=== PATIENT | female | born 1935 | race Caucasian/White ===

== ENCOUNTER 2019-01-26 14:37 | Emergency (ER) | payer MEDICARE ==
[2019-01-26] MEDS ORDERED: METHYLPREDNISOLONE PF 125MG/VIAL IM ONE (15:05)
[2019-01-26] MEDS ORDERED: IPRATROPIUM/ALBUTEROL (0.5MG/3MG) NEB INH ONE (15:05)
--- NOTE | 2019-01-26 15:09 | Emergency Department Record ---
History of Present Illness - General Chief Complaint: Difficulty Breathing Stated Complaint: TROUBLE BREATHING Time Seen by Provider: 01/26/19 14:51 Source: Patient Mode of Arrival: Ambulatory Limitations: No limitations - History of Present Illness Initial Comments: pts c/o cough, sob. she out of her nebulizer ampules. her cough is productive. she has had no fevers, sweats or chills MD Complaint: Cough, Shortness of breath Onset/Timin -: Days(s) Consistency: Intermittent Improves With: Nothing Worsens With: Nothing, Coughing Known History Of: COPD Context: Recent URI Associated Symptoms: Cough Treatments Prior to Arrival: None - Related Data Home Oxygen Therapy: No Home Medications Medication Instructions Recorded Confirmed Last Taken Aspirin 325 mg PO DAILY 01/26/19 01/26/19 01/26/19 Atorvastatin Calcium 80 mg PO QHS 01/26/19 01/26/19 01/25/19 Buspirone HCl [Buspar] 10 mg PO BID 01/26/19 01/26/19 01/26/19 Clopidogrel Bisulfate [Plavix] 75 mg PO DAILY 01/26/19 01/26/19 01/26/19 Escitalopram Oxalate [Lexapro] 10 mg PO DAILY 01/26/19 01/26/19 01/26/19 Insulin NPH Hum/Reg Insulin Hm 20 units SQ BID 01/26/19 01/26/19 01/26/19 [Novolin 70-30 Flexpen] Isosorbide Mononitrate [Imdur] 20 mg PO BID 01/26/19 01/26/19 01/26/19 Levothyroxine Sodium [Synthroid] 100 mcg PO DAILY 01/26/19 01/26/19 01/26/19 Previous Rx's Medication Instructions Recorded Albuterol Sulfate 0.083% [Neb] 3 ml NEB .EVERY 4-6 HOURS PRN #20 01/26/19 [Albuterol Sulfate] ml Doxycycline Hyclate 100 mg PO BID #14 cap 01/26/19 Prednisone [Prednisone 20Mg] 20 mg PO Q12HR #7 tab 01/26/19 Allergies Allergy/AdvReac Type Severity Reaction Status Date / Time codeine Allergy CHEST PAIN Verified 01/26/19 14:46 Penicillins Allergy RASH Verified 01/26/19 14:46 Travel Screening - Travel/Exposure Within Last 30 Days Have you traveled within the last 30 days?: No - Travel/Exposure Within Last Year Have you traveled outside the [place] in the last year?: No - Additonal Travel Details Have you been exposed to anyone with a communicable illness?: No - Travel Symptoms Symptom Screening: None Review of Systems Reviewed: No additional complaints except as noted below Constitutional: Reports: As per HPI. Denies: Chills, Fever, Malaise, Night sweats, Weakness, Weight change Eyes: Reports: As per HPI. Denies: Eye discharge, Eye pain, Photophobia, Vision change ENT: Reports: As per HPI. Denies: Congestion, Dental pain, Ear pain, Epistaxis , Hearing loss, Throat pain Respiratory: Reports: As per HPI. Denies: Cough, Dyspnea, Hemoptysis, Stridor, Wheezes Cardiovascular: Reports: As per HPI. Denies: Arrhythmia, Chest pain, Dyspnea on exertion, Edema, Murmurs, Orthopnea, Palpitations, Paroxysmal nocturnal dyspnea, Rheumatic Fever, Syncope Endocrine: Reports: As per HPI. Denies: Fatigue, Heat or cold intolerance, Polydipsia, Polyuria Gastrointestinal: Reports: As per HPI. Denies: Abdominal pain, Constipation, Diarrhea, Hematemesis, Hematochezia, Melena, Nausea, Vomiting Genitourinary: Reports: As per HPI. Denies: Abnormal menses, Discharge, Dyspareunia, Dysuria, Frequency, Hematuria, Incontinence, Retention, Urgency Musculoskeletal: Reports: As per HPI. Denies: Arthralgia, Back pain, Gout, Joint swelling, Myalgia, Neck pain Skin: Reports: As per HPI. Denies: Bruising, Change in color, Change in hair/ nails, Lesions, Pruritus, Rash Neurological: Reports: As per HPI. Denies: Abnormal gait, Confusion, Headache, Numbness, Paresthesias, Seizure, Tingling, Tremors, Vertigo, Weakness Psychiatric: Reports: As per HPI. Denies: Anxiety, Auditory hallucinations, Depression, Homicidal thoughts, Suicidal thoughts, Visual hallucinations Hematological/Lymphatic: Reports: As per HPI. Denies: Anemia, Blood Clots, Easy bleeding, Easy bruising, Swollen glands Past Medical History - SOCIAL HISTORY Smoking Status: Never smoker Alcohol Use: None Drug Use: None - RESPIRATORY Hx Respiratory Disorders: Yes Hx COPD: Yes - CARDIOVASCULAR Hx Cardio Disorders: Yes Hx Heart Attack: Yes - NEURO Hx Neuro Disorders: No - GI Hx GI Disorders: No - Hx Genitourinary Disorders: No - ENDOCRINE Hx Endocrine Disorders: Yes Hx Diabetes: Yes Hx Thyroid Disease: Yes - MUSCULOSKELETAL Hx Musculoskeletal Disorders: No - PSYCH Hx Psych Problems: Yes Hx Depression: Yes - HEMATOLOGY/ONCOLOGY Hx Hematology/Oncology Disorders: No Family Medical History Any Significant Family History?: Yes Hx Cancer: Brother/Sister Hx Dementia: Brother/Sister Hx Heart Disease: Father Physical Exam - General General Appearance: Alert, Oriented x3, Cooperative, No acute distress - Head Head exam: Normal inspection - Eye Eye exam: Normal appearance, PERRL, EOMI Pupils: Normal accommodation - ENT ENT exam: Normal exam, Mucous membranes moist, Normal external ear exam, Normal orophraynx Ear exam: Normal external inspection. negative: External canal tenderness Nasal Exam: Normal inspection. negative: Discharge, Sinus tenderness Mouth exam: Normal external inspection, Tongue normal Teeth exam: Normal inspection. negative: Dental caries Throat exam: Normal inspection. negative: Tonsillar erythema, Tonsillar exudate - Neck Neck exam: Normal inspection, Full ROM. negative: Tenderness - Respiratory Respiratory exam: Wheezes. negative: Respiratory distress - Cardiovascular Cardiovascular Exam: Regular rate, Normal rhythm, Normal heart sounds - GI/Abdominal GI/Abdominal exam: Soft, Normal bowel sounds. negative: Tenderness - Rectal Rectal exam: Deferred - exam: Deferred - Extremities Extremities exam: Normal inspection, Full ROM, Normal capillary refill. negative: Tenderness - Back Back exam: Reports: Normal inspection, Full ROM. Denies: Muscle spasm, Rash noted, Tenderness - Neurological Neurological exam: Alert, CN II-XII intact, Normal gait, Oriented X3 - Psychiatric Psychiatric exam: Normal affect, Normal mood - Skin Skin exam: Dry, Intact, Normal color, Warm Course Vital Signs 01/26/19 14:48 Temperature 97.8 F Pulse Rate 87 Respiratory 22 Rate Blood Pressure 132/54 Pulse Ox 97 - Reevaluation(s) Reevaluation #1: 01/26/19 17:07 pt is breathing easier Medical Decision Making - Lab Data Result diagrams: 01/26/19 14:55 01/26/19 14:55 Disposition Disposition: Discharge Clinical Impression: Bronchitis CHF (congestive heart failure) Qualifiers: Heart failure type: unspecified Heart failure chronicity: acute Qualified Code( s): I50.9 - Heart failure, unspecified COPD (chronic obstructive pulmonary disease) Qualifiers: COPD type: COPD with acute exacerbation Qualified Code(s): J44.1 - Chronic obstructive pulmonary disease with (acute) exacerbation Disposition: Home, Self-Care Condition: (1) Good Instructions: Dyspnea (ED), Heart Failure (ED), COPD (Chronic Obstructive Pulmonary Disease) (ED), Acute Bronchitis (ED) Additional Instructions: follow up with family doctor. return sooner if worse. Prescriptions: Prednisone [Prednisone 20Mg] 20 mg PO Q12HR #7 tab Albuterol Sulfate 0.083% [Neb] [Albuterol Sulfate] 3 ml NEB .EVERY 4-6 HOURS PRN #20 ml PRN Reason: Difficulty In Breathing Doxycycline Hyclate 100 mg PO BID #14 cap Forms: Patient Portal Access Quality - Quality Measures Quality Measures: N/A - Blood Pressure Screening Does Patient Have Any of the Following: Active Dx of HTN Blood Pressure Classification: Pre-Hypertensive BP Reading Systolic Measurement: 132 Diastolic Measurement: 54 Screening for High Blood Pressure: Patient Exclusion, Hx of HTN [G9744]
[2019-01-26] MEDS ORDERED: METHYLPREDNISOLONE PF 125MG/VIAL IVP ONE (15:13)
[2019-01-26 15:25] LABS: BASO % 0.1 % (0-6); EOS % 3.4 % (0-6); GRAN % 72.1 % (47-80); HEMATOCRIT 34.4 % (35.0-47.0); HEMOGLOBIN 10.7 gm/dl (11.6-16.0); LYMPH % 14.4 % (16-45); MEAN CELL VOLUME 94.5 fl (81-97); MEAN CORPUSCULAR HEMOGLOBIN 29.3 pg (27-33); MEAN CORPUSCULAR HGB CONC 31.1 g/dl (32-36); MEAN PLATELET VOLUME 10.3 fl (7.4-10.4); PLATELET COUNT 258 K/uL (130-400); RED BLOOD COUNT 3.64 M/uL (3.80-5.40); RED CELL DISTRIBUTION WIDTH 13.8 % (11.5-14.5); WHITE BLOOD COUNT W/O DIFF 7.6 K/uL (4.2-12.2)
[2019-01-26 15:36] LABS: CREATININE 1.4 mg/dL (0.5-0.9)
[2019-01-26] MEDS ORDERED: FUROSEMIDE IV 20MG/2ML VIAL IVP ONE (16:00)
--- NOTE | 2019-01-28 09:31 | RADIOLOGY REPORT ---
EXAM: CHEST, TWO VIEWS HISTORY: DIFFICULTY BREATHING WITH COUGH AND CONGESTION FOR THE PAST THREE DAYS. TECHNIQUE: PA and lateral upright views of the chest were obtained. Comparison: None. FINDINGS: The heart, mediastinum, and pulmonary vasculature are normal. There is mild calcification of the aorta. There are no acute infiltrates or effusions. There is no pneumothorax. The bones appear intact. Mild degenerative changes are present within the thoracic spine. IMPRESSION: NO ACUTE CHEST PATHOLOGY. JOB NUMBER: [id number] [facility]
== END 2019-01-26 17:27 | disposition home or self-care (01) ==
LOC: ER 14:37
DX: J44.1 Chronic obstructive pulmonary disease with (acute) exacerbation (principal); J44.0 Chronic obstructive pulmonary disease with (acute) lower respiratory infection; J20.9 Acute bronchitis, unspecified; I50.9 Heart failure, unspecified; R06.00 Dyspnea, unspecified; I10 Essential (primary) hypertension; I25.2 Old myocardial infarction
CPT/HCPCS: 71046; 80048; 83880; 84484; 85025; 94640; 96374; 96375; 99284; J1940; J2930

== ENCOUNTER 2019-02-02 15:08 | Inpatient (IN) | payer MEDICARE ==
[2019-02-02] MEDS ORDERED: IPRATROPIUM/ALBUTEROL (0.5MG/3MG) NEB INH ONE (15:28)
[2019-02-02 15:48] LABS: BASO % 0.1 % (0-6); EOS % 1.5 % (0-6); GRAN % 74.4 % (47-80); HEMATOCRIT 32.1 % (35.0-47.0); HEMOGLOBIN 10.2 gm/dl (11.6-16.0); LYMPH % 16.6 % (16-45); MEAN CELL VOLUME 92.2 fl (81-97); MEAN CORPUSCULAR HEMOGLOBIN 29.3 pg (27-33); MEAN CORPUSCULAR HGB CONC 31.8 g/dl (32-36); MEAN PLATELET VOLUME 9.7 fl (7.4-10.4); MONO % 7.4 % (0-9); PLATELET COUNT 347 K/uL (130-400); RED BLOOD COUNT 3.48 M/uL (3.80-5.40); RED CELL DISTRIBUTION WIDTH 13.4 % (11.5-14.5); WHITE BLOOD COUNT W/O DIFF 12.3 K/uL (4.2-12.2)
[2019-02-02 15:59] LABS: CREATININE 1.2 mg/dL (0.5-0.9)
[2019-02-02 16:03] LABS: STREP A SCREEN NEGATIVE (NEGATIVE)
[2019-02-02 16:07] LABS: INFLUENZA A NEGATIVE (NEGATIVE); INFLUENZA B NEGATIVE (NEGATIVE)
[2019-02-02] MEDS ORDERED: METHYLPREDNISOLONE PF 125MG/VIAL IVP ONE (16:07)
--- NOTE | 2019-02-02 16:10 | Emergency Department Record ---
History of Present Illness - General Chief Complaint: Difficulty Breathing Stated Complaint: HI,FEVER Time Seen by Provider: 02/02/19 16:00 Source: Patient Mode of Arrival: Ambulatory Limitations: No limitations - History of Present Illness Initial Comments: pt was here a week ago for sob and was given treatments, steroids and started on doxycycline. she has finished the abx and feels worse. she is coughing and wheezinf and frequently using her nebulizer Complaint: Cough, Shortness of breath Onset/Timin -: Days(s) Severity: Moderate Severity scale (1-10): 2 Quality: Aching Consistency: Constant Improves With: Bronchodilators Worsens With: Nothing Treatments Prior to Arrival: Bronchodilator - Related Data Previous Rx's Medication Instructions Recorded Albuterol Sulfate 0.083% [Neb] 3 ml NEB .EVERY 4-6 HOURS PRN #20 01/26/19 [Albuterol Sulfate] ml Doxycycline Hyclate 100 mg PO BID #14 cap 01/26/19 Allergies Allergy/AdvReac Type Severity Reaction Status Date / Time codeine Allergy CHEST PAIN Verified 02/02/19 15:19 Penicillins Allergy RASH Verified 02/02/19 15:19 Travel Screening - Travel/Exposure Within Last 30 Days Have you traveled within the last 30 days?: No - Travel/Exposure Within Last Year Have you traveled outside the [place] in the last year?: No - Additonal Travel Details Have you been exposed to anyone with a communicable illness?: No - Travel Symptoms Symptom Screening: None Review of Systems Reviewed: No additional complaints except as noted below Constitutional: Reports: As per HPI. Denies: Chills, Fever, Malaise, Night sweats, Weakness, Weight change Eyes: Reports: As per HPI. Denies: Eye discharge, Eye pain, Photophobia, Vision change ENT: Reports: As per HPI. Denies: Congestion, Dental pain, Ear pain, Epistaxis , Hearing loss, Throat pain Respiratory: Reports: As per HPI, Cough, Dyspnea, Wheezes. Denies: Hemoptysis, Stridor Cardiovascular: Reports: As per HPI. Denies: Arrhythmia, Chest pain, Dyspnea on exertion, Edema, Murmurs, Orthopnea, Palpitations, Paroxysmal nocturnal dyspnea, Rheumatic Fever, Syncope Endocrine: Reports: As per HPI. Denies: Fatigue, Heat or cold intolerance, Polydipsia, Polyuria Gastrointestinal: Reports: As per HPI. Denies: Abdominal pain, Constipation, Diarrhea, Hematemesis, Hematochezia, Melena, Nausea, Vomiting Genitourinary: Reports: As per HPI. Denies: Abnormal menses, Discharge, Dyspareunia, Dysuria, Frequency, Hematuria, Incontinence, Retention, Urgency Musculoskeletal: Reports: As per HPI. Denies: Arthralgia, Back pain, Gout, Joint swelling, Myalgia, Neck pain Skin: Reports: As per HPI. Denies: Bruising, Change in color, Change in hair/ nails, Lesions, Pruritus, Rash Neurological: Reports: As per HPI. Denies: Abnormal gait, Confusion, Headache, Numbness, Paresthesias, Seizure, Tingling, Tremors, Vertigo, Weakness Psychiatric: Reports: As per HPI. Denies: Anxiety, Auditory hallucinations, Depression, Homicidal thoughts, Suicidal thoughts, Visual hallucinations Hematological/Lymphatic: Reports: As per HPI. Denies: Anemia, Blood Clots, Easy bleeding, Easy bruising, Swollen glands Past Medical History - SOCIAL HISTORY Smoking Status: Never smoker Alcohol Use: None Drug Use: None - RESPIRATORY Hx Respiratory Disorders: Yes Hx Bronchitis: Yes Hx COPD: Yes Hx Dyspnea: Yes Hx Pneumonia: Yes - CARDIOVASCULAR Hx Cardio Disorders: Yes Hx Cardiac Cath: Yes (4 or 5 stents) Hx Heart Attack: Yes - NEURO Hx Neuro Disorders: No - GI Hx GI Disorders: No - Hx Genitourinary Disorders: No - ENDOCRINE Hx Endocrine Disorders: Yes Hx Diabetes: Yes Hx Thyroid Disease: Yes - MUSCULOSKELETAL Hx Musculoskeletal Disorders: No - PSYCH Hx Psych Problems: Yes Hx Depression: Yes - HEMATOLOGY/ONCOLOGY Hx Hematology/Oncology Disorders: No Family Medical History Any Significant Family History?: Yes Hx Cancer: Brother/Sister Hx Dementia: Brother/Sister Hx Heart Disease: Father Physical Exam - General General Appearance: Alert, Oriented x3, Cooperative, Mild distress - Head Head exam: Normal inspection - Eye Eye exam: Normal appearance, PERRL, EOMI Pupils: Normal accommodation - ENT ENT exam: Normal exam, Mucous membranes moist, Normal external ear exam, Normal orophraynx Ear exam: Normal external inspection. negative: External canal tenderness Nasal Exam: Normal inspection. negative: Discharge, Sinus tenderness Mouth exam: Normal external inspection, Tongue normal Teeth exam: Normal inspection. negative: Dental caries Throat exam: Normal inspection. negative: Tonsillar erythema, Tonsillar exudate - Neck Neck exam: Normal inspection, Full ROM. negative: Tenderness - Respiratory Respiratory exam: Accessory muscle use, Rales, Respiratory distress, Wheezes - Cardiovascular Cardiovascular Exam: Regular rate, Normal rhythm, Normal heart sounds - GI/Abdominal GI/Abdominal exam: Soft, Normal bowel sounds. negative: Tenderness - Rectal Rectal exam: Deferred - exam: Deferred - Extremities Extremities exam: Normal inspection, Full ROM, Normal capillary refill. negative: Tenderness - Back Back exam: Reports: Normal inspection, Full ROM. Denies: Muscle spasm, Rash noted, Tenderness - Neurological Neurological exam: Alert, CN II-XII intact, Normal gait, Oriented X3 - Psychiatric Psychiatric exam: Normal affect, Normal mood - Skin Skin exam: Dry, Intact, Normal color, Warm Course Vital Signs 02/02/19 02/02/19 15:11 15:33 Temperature 97.9 F Pulse Rate 78 81 Respiratory 20 20 Rate Blood Pressure 127/58 Pulse Ox 95 98 - Reevaluation(s) Reevaluation #1: 02/02/19 17:48 pt has failed outpt treatment Medical Decision Making - Lab Data Result diagrams: 02/02/19 15:30 02/02/19 15:30 Lab Results 02/02/19 02/02/19 02/02/19 Range/Units 15:30 15:30 15:30 WBC 12.3 H (4.2-12.2) K/uL RBC 3.48 L (3.80-5.40) M/uL Hgb 10.2 L (11.6-16.0) gm/dl Hct 32.1 L (35.0-47.0) % MCV 92.2 (81-97) fl MCH 29.3 (27-33) pg MCHC 31.8 L (32-36) g/dl RDW 13.4 (11.5-14.5) % Plt Count 347 (130-400) K/uL MPV 9.7 (7.4-10.4) fl Gran % 74.4 (47-80) % Lymphocytes % 16.6 (16-45) % Monocytes % 7.4 (0-9) % Eosinophils % 1.5 (0-6) % Basophils % 0.1 (0-6) % Sodium 142 (136-145) mmol/L Potassium 3.9 (3.4-4.5) mmol/L Chloride 105 (98-107) mmol/L Carbon Dioxide 24.0 (22-29) mmol/L Anion Gap 13.0 (7-16) BUN 21 (8-23) mg/dL Creatinine 1.2 H (0.5-0.9) mg/dL Estimated GFR 46 mL/min Random Glucose 105 (74-109) mg/dL Calcium 8.6 L (8.8-10.2) mg/dL Influenza Type A Ag Negative (NEGATIVE) Influenza Type B Ag Negative (NEGATIVE) Group A Strep Screen Negative (NEGATIVE) Disposition Disposition: Admit Clinical Impression: Acute exacerbation of COPD with asthma Pneumonia Qualifiers: Pneumonia type: due to unspecified organism Laterality: bilateral Lung location : lower lobe of lung Qualified Code(s): J18.1 - Lobar pneumonia, unspecified organism Disposition: Still a Patient at [facility] Decision to Admit: Admit from ER Decision to Admit Date: 02/02/19 Decision to Admit Time: 18:07 Condition: (1) Good Forms: Patient Portal Access Quality - Quality Measures Quality Measures: N/A - Blood Pressure Screening Does Patient Have Any of the Following: No Blood Pressure Classification: Pre-Hypertensive BP Reading Systolic Measurement: 127 Diastolic Measurement: 58 Screening for High Blood Pressure: < Pre-Hypertensive BP, F/U Documented > [ G8950] Pre-Hypertensive Follow-up Interventions: Follow-up with rescreen every year.
[2019-02-02] MEDS ORDERED: LEVOFLOXACIN/D5W 750 MG/150 ML BAG IVPB ONE (17:46)
[2019-02-02] MEDS ORDERED: ACETAMINOPHEN 500 MG TABLET PO PRN (18:44)
[2019-02-02] MEDS ORDERED: 0.9 % SODIUM CHLORIDE 100ML BAG IV SCH (19:00)
[2019-02-02] MEDS: IPRATROPIUM/ALBUTEROL (0.5MG/3MG) NEB INH PRN (20:17)
[2019-02-02] MEDS: LEVOFLOXACIN/D5W 750 MG/150 ML BAG IVPB SCH (21:39)
[2019-02-02] MEDS ORDERED: 0.9 % SODIUM CHLORIDE 100ML BAG IV PRN (21:44)
[2019-02-02] MEDS: BUSPIRONE 5 MG TABLET PO SCH ×2 (22:02→22:13)
[2019-02-02] MEDS: 0.9 % SODIUM CHLORIDE 1000ML 1,000 ML IV SCH (22:03)
[2019-02-02] MEDS: ISOSORBIDE MONONITRATE 20 MG TABLET PO SCH (22:03)
[2019-02-02] MEDS: HUMULIN 70/30 KWIKPEN 100 UNIT/ML SQ SCH (22:04)
[2019-02-02] MEDS: ALBUTEROL SULFATE (0.083%) 2.5 MG/3 ML NEB INH PRN (22:08)
[2019-02-03] MEDS: DIPHENHYDRAMINE HCL 25 MG CAPSULE PO PRN (00:36)
[2019-02-03] MEDS: IPRATROPIUM/ALBUTEROL (0.5MG/3MG) NEB INH PRN (05:48)
--- NOTE | 2019-02-03 06:42 | History & Physical ---
History of Present Illness - Date of Service Date of Service for History & Physical: 02/03/19 - History of Present Illness Admitting Diagnosis: acute exacerbation of copd w asthma, pneumonia, outpt failure History of Present Illness: Mrs. Chin is a 84 y/o female with history of COPD, DM II and CAD s/p stents, complaint of shortness of breath and weakness over the past 1 week. The patient says that she was seen in the ED last week and started on antibiotics for pneumonia and treated for COPD exacerbation which did resolve her symptoms. She says she felt a lot better but then about 1 day ago her symptoms returned. She says that she was not taking her medications as prescribed because she just didn 't feel like it. She says that her appetite hasn't been the best and she feels much weaker. The patient is independent of her ADLs and does not use any oxygen at home. Shes denies, fever, chest pain, headaches, N/V. The patient says that she recently moved from [place] and does not have [employer] here. She cannot recall when her last cardiac echo was and she denies any recent changes to medications. ED course: CXR: No infiltrates/opacities. Labs: WBCs 12K, electrolytes WNL Vitals: BP 127/58,HR78,T97.9, RR20, 95% RA Current Vitals: BP 125/45, HR 79, T 97.7, RR 24, Sats 97% RA PCP: Dr. Kamaljit Garrido Travel Screening - Travel/Exposure Within Last 30 Days Have you traveled within the last 30 days?: No - Travel/Exposure Within Last Year Have you traveled outside the [place] in the last year?: No - Additonal Travel Details Have you been exposed to anyone with a communicable illness?: No - Travel Symptoms Symptom Screening: None Review of Systems Constitutional: Reports: As per HPI. Denies: Chills, Fever, Malaise, Night sweats, Weakness, Weight change Eyes: Reports: As per HPI. Denies: Eye discharge, Eye pain, Photophobia, Vision change ENT: Reports: As per HPI. Denies: Congestion, Dental pain, Ear pain, Epistaxis , Hearing loss, Throat pain Respiratory: Reports: As per HPI, Cough, Dyspnea, Wheezes. Denies: Hemoptysis, Stridor Cardiovascular: Reports: As per HPI. Denies: Arrhythmia, Chest pain, Dyspnea on exertion, Edema, Murmurs, Orthopnea, Palpitations, Paroxysmal nocturnal dyspnea, Rheumatic Fever, Syncope Endocrine: Reports: As per HPI. Denies: Fatigue, Heat or cold intolerance, Polydipsia, Polyuria Gastrointestinal: Reports: As per HPI. Denies: Abdominal pain, Constipation, Diarrhea, Hematemesis, Hematochezia, Melena, Nausea, Vomiting Genitourinary: Reports: As per HPI. Denies: Abnormal menses, Discharge, Dyspareunia, Dysuria, Frequency, Hematuria, Incontinence, Retention, Urgency Musculoskeletal: Reports: As per HPI. Denies: Arthralgia, Back pain, Gout, Joint swelling, Myalgia, Neck pain Skin: Reports: As per HPI. Denies: Bruising, Change in color, Change in hair/ nails, Lesions, Pruritus, Rash Neurological: Reports: As per HPI. Denies: Abnormal gait, Confusion, Headache, Numbness, Paresthesias, Seizure, Tingling, Tremors, Vertigo, Weakness Psychiatric: Reports: As per HPI. Denies: Anxiety, Auditory hallucinations, Depression, Homicidal thoughts, Suicidal thoughts, Visual hallucinations Hematological/Lymphatic: Reports: As per HPI. Denies: Anemia, Blood Clots, Easy bleeding, Easy bruising, Swollen glands Past Medical History - SOCIAL HISTORY Smoking Status: Never smoker Alcohol Use: None Drug Use: None - RESPIRATORY Hx Respiratory Disorders: Yes Hx Bronchitis: Yes Hx COPD: Yes Hx Dyspnea: Yes Hx Pneumonia: Yes - CARDIOVASCULAR Hx Cardio Disorders: Yes Hx Cardiac Cath: Yes (4 or 5 stents) Hx Edema: Yes Hx Heart Attack: Yes Hx Hypertension: Yes - NEURO Hx Neuro Disorders: No Comment:: surgury for impinged facial nerve - GI Hx GI Disorders: Yes Hx Reflux: Yes Hx Hepatitis/Jaundice: Yes (childhood jaundice) Hx of Polyps: Yes - Hx Genitourinary Disorders: No Hx Bladder Problem: Yes Hx UTI: Yes - ENDOCRINE Hx Endocrine Disorders: Yes Hx Diabetes: Yes Hx Thyroid Disease: Yes - MUSCULOSKELETAL Hx Musculoskeletal Disorders: No Hx Arthritis: Yes Hx Back Injury: Yes - PSYCH Hx Psych Problems: Yes Hx Anxiety: Yes Hx Depression: Yes - HEMATOLOGY/ONCOLOGY Hx Hematology/Oncology Disorders: No Family Medical History Any Significant Family History?: Yes Hx Cancer: Brother/Sister, Grandparents Hx Dementia: Brother/Sister Hx Diabetes: Brother/Sister Hx Heart Disease: Father, Mother, Brother/Sister Hx HTN: Father, Mother, Brother/Sister H&P Meds/Allergies - Allergies Allergies: Allergies Allergy/AdvReac Type Severity Reaction Status Date / Time codeine Allergy CHEST PAIN Verified 02/02/19 15:19 Penicillins Allergy RASH Verified 02/02/19 15:19 - Home Medications Previous Rx's Medication Instructions Recorded Albuterol Sulfate 0.083% [Neb] 3 ml NEB .EVERY 4-6 HOURS PRN #20 01/26/19 [Albuterol Sulfate] ml Doxycycline Hyclate 100 mg PO BID #14 cap 01/26/19 - Active Medications Active Medications: Current Medications Acetaminophen (Tylenol 500mg Tab) 1,000 mg PO Q6H PRN PRN Reason: PAIN - MILD(1-4)/FEVER Albuterol Sulfate (Albuterol Sulfate) 2.5 mg INH RESP.Q4H PRN PRN Reason: DIFFICULTY IN BREATHING Last Admin: 02/02/19 22:08 Dose: 2.5 mg Albuterol/Ipratropium (Duoneb) 3 ml INH RESP.Q6H PRN PRN Reason: WHEEZING Last Admin: 02/03/19 05:48 Dose: 3 ml Aspirin (Aspirin, Regular) 325 mg PO DAILY COUNTS [facility]CLUDE 234 BEDS AT THE [facility] Atorvastatin Calcium (Lipitor) 80 mg PO QHS COUNTS INCLUDE 234 BEDS AT THE [facility] Buspirone HCl (Buspar) 10 mg PO BID COUNTS INCLUDE 234 BEDS AT THE [facility] Last Admin: 02/02/19 22:13 Dose: 10 mg Clopidogrel Bisulfate (Plavix) 75 mg PO DAILY COUNTS INCLUDE 234 BEDS AT THE [facility] Diphenhydramine HCl (Benadryl Capsule) 25 mg PO QHS PRN PRN Reason: INSOMNIA Last Admin: 02/03/19 00:36 Dose: 25 mg Escitalopram Oxalate (Lexapro) 10 mg PO DAILY COUNTS [facility]CLUDE 234 BEDS AT THE [facility] Levofloxacin/Dextrose (Levaquin 750mg Ivpb) 750 mg in 150 mls @ 125 mls/hr IVPB Q48H COUNTS INCLUDE 234 BEDS AT THE [facility] Stop: 02/07/19 18:45 Last Admin: 02/02/19 21:39 Dose: Not Given Sodium Chloride () 1,000 mls @ 100 mls/hr IV .Q10H COUNTS INCLUDE 234 BEDS AT THE [facility] Last Infusion: 02/02/19 22:38 Dose: 0 mls/hr Insulin Isophane/Insulin Regular (Humulin 70/30 Kwikpen) 20 unit SQ BID COUNTS INCLUDE 234 BEDS AT THE [facility] Last Admin: 02/02/19 22:04 Dose: 20 unit Isosorbide Mononitrate (Imdur) 20 mg PO BID COUNTS INCLUDE 234 BEDS AT THE [facility] Last Admin: 02/02/19 22:03 Dose: 20 mg Levothyroxine Sodium (Synthroid) 100 mcg PO DAILY COUNTS INCLUDE 234 BEDS AT THE [facility] Methylprednisolone Sodium Succinate (Solu-Medrol) 125 mg IVP DAILY COUNTS INCLUDE 234 BEDS AT THE [facility] Pneumococcal Polyvalent Vaccine (Pneumovax) 25 mcg IM .ONCE ONE Stop: 02/03/19 10:01 Physical Exam - Vital Signs Vital Signs: Vital Signs - Last 24 Hrs Temp Pulse Pulse Resp BP BP Pulse Ox 02/03/19 06:00 97.7 F 79 24 125/45 97 02/03/19 05:49 84 22 97 02/02/19 22:10 79 20 94 L 02/02/19 21:00 20 02/02/19 20:38 97.7 F 84 22 127/45 97 02/02/19 20:20 88 22 95 02/02/19 18:45 98.1 F 70 22 141/45 100 02/02/19 17:03 76 20 126/55 97 02/02/19 15:33 81 20 98 02/02/19 15:11 97.9 F 78 20 127/58 95 - General General Appearance: Alert, Oriented x3, Cooperative, Mild distress Limitations: No limitations - Head Head exam: Normal inspection - Eye Eye exam: Normal appearance, PERRL, EOMI Pupils: Normal accommodation - ENT ENT exam: Normal exam, Mucous membranes moist, Normal external ear exam, Normal orophraynx Ear exam: Normal external inspection. negative: External canal tenderness Nasal Exam: Normal inspection. negative: Discharge, Sinus tenderness Mouth exam: Normal external inspection, Tongue normal Teeth exam: Normal inspection. negative: Dental caries Throat exam: Normal inspection. negative: Tonsillar erythema, Tonsillar exudate - Neck Neck exam: Normal inspection, Full ROM. negative: Tenderness - Respiratory Respiratory exam: Rales, Wheezes, Other (crackles at lung bases) - Cardiovascular Cardiovascular Exam: Regular rate, Normal rhythm, Normal heart sounds Peripheral Pulses: 3+: Radial (R), Radial (L), Dorsalis Pedis (R), Dorsalis Pedis (L) - GI/Abdominal GI/Abdominal exam: Soft, Normal bowel sounds. negative: Tenderness - Rectal Rectal exam: Deferred - exam: Deferred - Extremities Extremities exam: Normal inspection, Full ROM, Normal capillary refill. negative: Tenderness - Back Back exam: Reports: Normal inspection, Full ROM. Denies: Muscle spasm, Rash noted, Tenderness - Neurological Neurological exam: Alert, CN II-XII intact, Normal gait, Oriented X3 - Psychiatric Psychiatric exam: Normal affect, Normal mood - Skin Skin exam: Dry, Intact, Normal color, Warm Results - Labs Result Diagrams: 02/02/19 15:30 02/02/19 15:30 Labs Last 24 Hours: Laboratory Results - last 24 hr 02/02/19 02/02/19 02/02/19 15:30 15:30 15:30 WBC 12.3 H RBC 3.48 L Hgb 10.2 L Hct 32.1 L MCV 92.2 MCH 29.3 MCHC 31.8 L RDW 13.4 Plt Count 347 MPV 9.7 Gran % 74.4 Lymphocytes % 16.6 Monocytes % 7.4 Eosinophils % 1.5 Basophils % 0.1 Sodium 142 Potassium 3.9 Chloride 105 Carbon Dioxide 24.0 Anion Gap 13.0 BUN 21 Creatinine 1.2 H Estimated GFR 46 Random Glucose 105 Calcium 8.6 L NT-Pro-B Natriuret Pep Influenza Type A Ag Negative Influenza Type B Ag Negative Group A Strep Screen Negative 02/02/19 15:30 WBC RBC Hgb Hct MCV MCH MCHC RDW Plt Count MPV Gran % Lymphocytes % Monocytes % Eosinophils % Basophils % Sodium Potassium Chloride Carbon Dioxide Anion Gap BUN Creatinine Estimated GFR Random Glucose Calcium NT-Pro-B Natriuret Pep 2980.00 H Influenza Type A Ag Influenza Type B Ag Group A Strep Screen VTE H&P Assessment - Risk for VTE Risk for VTE: Yes Risk Level: High Risk Assessment Date: 02/03/19 Risk Assessment Time: 09:16 VTE Orders Placed or Will Be Placed: Yes Plan - Inpatient Certification Inpatient Certification: Admit to inpatient care: Based on my medical assessment, after consideration of patient's risk factors (age, co-morbidities and patient presenting symptoms and acuity), I expect that this patient will remain in the hospital greater than or equal to two midnights and that the services needed warrant inpatient care because: Patient Risk Factors: COPD exacerbation, Pneumonia Estimated length of stay: 3 days The patient may reasonably be expected to be discharged or transferred to a hospital within 96 hours after admission to [facility]. I certify that my determination is in accordance with my understanding of Medicare requirements for reasonable and necessary inpatient services. 02/03/19 09:30 - Detailed Diagnosis and Plan (1) Dyspnea Current Visit: Yes Status: Acute Qualifiers: Dyspnea type: dyspnea on exertion Qualified Code(s): R06.09 - Other forms of dyspnea Base Code: R06.00 - DYSPNEA, UNSPECIFIED Comment: 02/04/19: - 2/2 COPD, CHF? vs Pneuomonia - Maintaining sats > 95 % on RA - Supplmental oxygen as needed. - CXR not showing infiltrate, lung sounds suggestive of fluid overload. Pt non- compliant with Lasix. - Checking Echo and ordered procalcitonin. (2) COPD (chronic obstructive pulmonary disease) Current Visit: No Status: Acute Qualifiers: COPD type: COPD with acute exacerbation Qualified Code(s): J44.1 - Chronic obstructive pulmonary disease with (acute) exacerbation Base Code: J44.9 - CHRONIC OBSTRUCTIVE PULMONARY DISEASE, UNSPECIFIED Comment : 02/03/19: - Sats >95% on room. 02/03/19: - CXR: acute process noted, no infiltrates/opacities. - WBC 12K. Influenza A/B negative. Ordered procalcitonon. D/C Abx if indicated. - Supplemental oxygen PRN to keep sats > 92%. - On Duonebs Q6H, Albuterol nebs Q4H PRN, D/C Solumderol. - Prednisone 40mg PO QD, Breo inhaler QD to be continued at home. - Patient is exposed to second hand smoke in her home. (3) CHF (congestive heart failure) Current Visit: No Status: Acute Qualifiers: Heart failure type: unspecified Heart failure chronicity: acute Qualified Code(s): I50.9 - Heart failure, unspecified Base Code: I50.9 - HEART FAILURE, UNSPECIFIED Comment: 02/03/19: - Exertional dyspnea, crackles of lower lung bases bilaterally, hx of CAD s/p stents. - Pt non-compliance with medications for the past 3 days. - 2D echo ordered. - Resume home medications: Atorvastatin 80mg Qd, Imdur 20mg BID, ASA/Plavix, BB? - Starting Lasix 20mg PO QD, pharmacy to reconcile home medications. (4) Diabetes mellitus, type II Current Visit: Yes Status: Acute Base Code: E11.9 - TYPE 2 DIABETES MELLITUS WITHOUT COMPLICATIONS Comment: 02/03/19: - Resume insulin 70/30 20 units BID, start insulin sliding scale low dose. - Acuchecks TIDAC, Diabetic diet. - POC glucose: 404, administered 10 units of insulin. (5) Depression with anxiety Current Visit: Yes Status: Acute Base Code: F41.8 - OTHER SPECIFIED ANXIETY DISORDERS Comment: 02/03/19: - Resume home Lexapro and Buspar. (6) DVT prophylaxis Current Visit: Yes Status: Acute Base Code: [id number] - Comment: 02/03/19: - Lovenox 40mg subq QD (7) Full code status Current Visit: Yes Status: Acute Base Code: Z78.9 - OTHER SPECIFIED HEALTH STATUS Comment: 02/03/19: - Discussed code status with the patient. - Pt is full code this admission.
[2019-02-03] MEDS ORDERED: NOVOLOG FLEXPEN (INSULIN ASPART) 100 UNITS/ML SQ ONE ×2 (07:33→08:40)
[2019-02-03] MEDS: HUMULIN 70/30 KWIKPEN 100 UNIT/ML SQ SCH ×2 (09:51→21:48)
[2019-02-03] MEDS: LEVOTHYROXINE SODIUM 100 MCG TABLET PO SCH (09:51)
[2019-02-03] MEDS: ATORVASTATIN 20 MG TABLET PO SCH ×2 (09:51→21:07)
[2019-02-03] MEDS: ESCITALOPRAM 10 MG TABLET PO SCH (09:52)
[2019-02-03] MEDS: CLOPIDOGREL 75MG TABLET PO SCH (09:52)
[2019-02-03] MEDS: ASPIRIN 325 MG TABLET PO SCH (09:52)
[2019-02-03] MEDS: BUSPIRONE 5 MG TABLET PO SCH ×2 (09:52→21:08)
[2019-02-03] MEDS: ISOSORBIDE MONONITRATE 20 MG TABLET PO SCH ×2 (09:52→21:06)
[2019-02-03] MEDS ORDERED: METHYLPREDNISOLONE PF 125MG/VIAL IVP SCH (10:00)
[2019-02-03] MEDS ORDERED: PNEUM 23-VAL ADULT IM ONE (10:00)
[2019-02-03] MEDS ORDERED: BUSPIRONE 5 MG TABLET PO ONE (10:45)
[2019-02-03] MEDS: BREO (FLUTICASONE/VILANTEROL) 100MCG/25MCG INHALER INH SCH (10:47)
[2019-02-03] MEDS: ENOXAPARIN 40 MG/0.4 ML SYR SQ SCH (10:53)
[2019-02-03] MEDS: PREDNISONE 20 MG TAB PO SCH (10:54)
[2019-02-03] MEDS: FUROSEMIDE 20 MG TABLET PO SCH (10:54)
[2019-02-03] MEDS: PANTOPRAZOLE SODIUM 40 MG TABLET PO SCH (10:54)
[2019-02-03] MEDS: METOPROLOL SUCC 25 MG TAB.ER PO SCH (10:55)
[2019-02-03] MEDS: 0.9 % SODIUM CHLORIDE 1000ML 1,000 ML IV SCH (11:42)
[2019-02-03] MEDS: NOVOLOG FLEXPEN (INSULIN ASPART) 100 UNITS/ML SQ SCH ×2 (12:55→17:55)
[2019-02-03] MEDS: ALBUTEROL SULFATE (0.083%) 2.5 MG/3 ML NEB INH PRN (18:01)
--- NOTE | 2019-02-04 05:16 | RADIOLOGY REPORT ---
EXAM: CHEST, TWO VIEWS HISTORY: COUGH WITH CONGESTION. TECHNIQUE: Two views of the chest were obtained. FINDINGS: The lungs are clear. There is no evidence of effusion, vascular distention, or suspicious mass. The heart is at the upper limits of normal. IMPRESSION: NO EVIDENCE OF AN ACUTE INTRATHORACIC PROCESS. JOB NUMBER: [id number] MTDD
[2019-02-04] MEDS: PANTOPRAZOLE SODIUM 40 MG TABLET PO SCH (06:35)
[2019-02-04] MEDS: LEVOTHYROXINE SODIUM 100 MCG TABLET PO SCH (06:35)
[2019-02-04] MEDS: PREDNISONE 20 MG TAB PO SCH (08:26)
[2019-02-04] MEDS: NOVOLOG FLEXPEN (INSULIN ASPART) 100 UNITS/ML SQ SCH ×3 (08:34→18:15)
[2019-02-04] MEDS: BREO (FLUTICASONE/VILANTEROL) 100MCG/25MCG INHALER INH SCH (09:31)
[2019-02-04] MEDS: ALBUTEROL SULFATE (0.083%) 2.5 MG/3 ML NEB INH PRN (09:31)
[2019-02-04] MEDS: ASPIRIN 325 MG TABLET PO SCH (09:56)
[2019-02-04] MEDS: BUSPIRONE 5 MG TABLET PO SCH ×2 (09:57→22:14)
[2019-02-04] MEDS: ISOSORBIDE MONONITRATE 20 MG TABLET PO SCH ×2 (09:58→22:13)
[2019-02-04] MEDS: FUROSEMIDE 20 MG TABLET PO SCH (10:00)
[2019-02-04] MEDS: ENOXAPARIN 40 MG/0.4 ML SYR SQ SCH (10:01)
[2019-02-04] MEDS: ESCITALOPRAM 10 MG TABLET PO SCH (10:01)
[2019-02-04] MEDS: CLOPIDOGREL 75MG TABLET PO SCH (10:01)
[2019-02-04] MEDS: METOPROLOL SUCC 25 MG TAB.ER PO SCH (10:02)
[2019-02-04] MEDS: HUMULIN 70/30 KWIKPEN 100 UNIT/ML SQ SCH ×2 (10:14→22:15)
--- NOTE | 2019-02-04 17:42 | Physician Progress Note ---
Subjective - Date Date of Physician Progress Note: 02/04/19 Objective - Vital Signs Vital Signs: Vital Signs - Last 24 Hrs Temp Pulse Pulse Resp BP Pulse Ox 02/04/19 14:00 97.1 F L 66 18 117/65 97 02/04/19 09:32 80 16 99 02/04/19 09:00 71 16 02/04/19 07:57 97.8 F 70 14 110/51 98 02/04/19 04:55 98.0 F 85 22 134/54 97 02/03/19 23:44 97.9 F 76 20 119/52 98 02/03/19 20:36 98.0 F 79 22 114/41 98 02/03/19 20:12 20 02/03/19 18:04 79 20 98 02/03/19 18:01 80 20 99 02/03/19 18:00 97.4 F L 81 18 104/53 94 L - General General Appearance: Alert, Oriented x3, Cooperative, No acute distress Limitations: No limitations - Head Head exam: Normal inspection - Eye Eye exam: Normal appearance, PERRL, EOMI Pupils: Normal accommodation - ENT ENT exam: Normal exam, Mucous membranes moist, Normal external ear exam, Normal orophraynx Ear exam: Normal external inspection. negative: External canal tenderness Nasal Exam: Normal inspection. negative: Discharge, Sinus tenderness Mouth exam: Normal external inspection, Tongue normal Teeth exam: Normal inspection. negative: Dental caries Throat exam: Normal inspection. negative: Tonsillar erythema, Tonsillar exudate - Neck Neck exam: Normal inspection, Full ROM. negative: Tenderness - Respiratory Respiratory exam: Rales, Wheezes, Other (crackles at lung bases) - Cardiovascular Cardiovascular Exam: Regular rate, Normal rhythm, Normal heart sounds Peripheral Pulses: 3+: Radial (R), Radial (L), Dorsalis Pedis (R), Dorsalis Pedis (L) - GI/Abdominal GI/Abdominal exam: Soft, Normal bowel sounds. negative: Tenderness - Rectal Rectal exam: Deferred - exam: Deferred - Extremities Extremities exam: Normal inspection, Full ROM, Normal capillary refill. negative: Tenderness - Back Back exam: Reports: Normal inspection, Full ROM. Denies: Muscle spasm, Rash noted, Tenderness - Neurological Neurological exam: Alert, CN II-XII intact, Normal gait, Oriented X3 - Psychiatric Psychiatric exam: Normal affect, Normal mood - Skin Skin exam: Dry, Intact, Normal color, Warm Assessment and Plan - Assessment and Plan (1) Dyspnea Current Visit: Yes Status: Acute Qualifiers: Dyspnea type: dyspnea on exertion Qualified Code(s): R06.09 - Other forms of dyspnea Base Code: R06.00 - DYSPNEA, UNSPECIFIED Comment: 02/04/19 -ECHO completed, EF 60% but showing severe pulm HTN, pt does not have [employer] middle[employer] and no cards available for cosult today -Procalcitonin 0.100, CHF and COPD components rather, less concern for PNA 02/04/19: - 2/2 COPD, CHF? vs Pneuomonia - Maintaining sats > 95 % on RA - Supplmental oxygen as needed. - CXR not showing infiltrate, lung sounds suggestive of fluid overload. Pt non- compliant with Lasix. - Checking Echo and ordered procalcitonin. (2) Diabetes mellitus, type II Current Visit: Yes Status: Acute Base Code: E11.9 - TYPE 2 DIABETES MELLITUS WITHOUT COMPLICATIONS Comment: 02/04/19 -continue insuline, steroid use has caused hyperglycemia, A1c >8, pt will follow with PCP -continue TID AC accuchecks, ADA diet 02/03/19: - Resume insulin 70/30 20 units BID, start insulin sliding scale low dose. - Acuchecks TIDAC, Diabetic diet. - POC glucose: 404, administered 10 units of insulin. (3) CHF (congestive heart failure) Current Visit: No Status: Acute Qualifiers: Heart failure type: unspecified Heart failure chronicity: acute Qualified Code(s): I50.9 - Heart failure, unspecified Base Code: I50.9 - HEART FAILURE, UNSPECIFIED Comment: 02/04/19 -lung sound improved, lower leg edema continues -ECHO EF 60% with severe pulm htn, pt needs card consult/follow up -continue lasix QD 02/03/19: - Exertional dyspnea, crackles of lower lung bases bilaterally, hx of CAD s/p stents. - Pt non-compliance with medications for the past 3 days. - 2D echo ordered. - Resume home medications: Atorvastatin 80mg Qd, Imdur 20mg BID, ASA/Plavix, BB? - Starting Lasix 20mg PO QD, pharmacy to reconcile home medications. (4) COPD (chronic obstructive pulmonary disease) Current Visit: No Status: Acute Qualifiers: COPD type: COPD with acute exacerbation Qualified Code(s): J44.1 - Chronic obstructive pulmonary disease with (acute) exacerbation Base Code: J44.9 - CHRONIC OBSTRUCTIVE PULMONARY DISEASE, UNSPECIFIED Comment : 02/04/19 -sats maintaining on RA -duo nebs q6hr, PO steroids -Started Breo inhaler 02/03/19: - Sats >95% on room. 02/03/19: - CXR: acute process noted, no infiltrates/opacities. - WBC 12K. Influenza A/B negative. Ordered procalcitonon. D/C Abx if indicated. - Supplemental oxygen PRN to keep sats > 92%. - On Duonebs Q6H, Albuterol nebs Q4H PRN, D/C Solumderol. - Prednisone 40mg PO QD, Breo inhaler QD to be continued at home. - Patient is exposed to second hand smoke in her home. (5) DVT prophylaxis Current Visit: Yes Status: Acute Base Code: [id number] - Comment: 02/04/19: - Lovenox 40mg subq QD (6) Full code status Current Visit: Yes Status: Acute Base Code: Z78.9 - OTHER SPECIFIED HEALTH STATUS Comment: 02/04/19: - Discussed code status with the patient. - Pt is full code this admission. Results - Labs Result Diagrams: 02/02/19 15:30 02/03/19 12:19 Labs Last 24 Hours: Laboratory Results - last 24 hr 02/03/19 02/03/19 02/04/19 17:43 21:38 10:26 POC Glucose 284 H 361 H 127 H Hemoglobin A1c 02/04/19 02/04/19 02/04/19 10:28 10:45 10:48 POC Glucose 272 H Hemoglobin A1c 8.10 H Cancelled 02/04/19 12:15 POC Glucose 371 H Hemoglobin A1c DVT/PE Assessment - Risk for VTE Risk for VTE: Yes Risk Level: High Risk Assessment Date: 02/03/19 Risk Assessment Time: 09:16 VTE Orders Placed or Will Be Placed: Yes - Active Medicaitons Current Medications: Current Medications Acetaminophen (Tylenol 500mg Tab) 1,000 mg PO Q6H PRN PRN Reason: PAIN - MILD(1-4)/FEVER Albuterol Sulfate (Albuterol Sulfate) 2.5 mg INH RESP.Q4H PRN PRN Reason: DIFFICULTY IN BREATHING Last Admin: 02/04/19 09:31 Dose: 2.5 mg Albuterol/Ipratropium (Duoneb) 3 ml INH RESP.Q6H PRN PRN Reason: WHEEZING Last Admin: 02/03/19 05:48 Dose: 3 ml Aspirin (Aspirin, Regular) 325 mg PO DAILY [facility] Last Admin: 02/04/19 09:56 Dose: 325 mg Atorvastatin Calcium (Lipitor) 80 mg PO QHS [facility] Last Admin: 02/03/19 21:07 Dose: 80 mg Buspirone HCl (Buspar) 20 mg PO BID [facility] Last Admin: 02/04/19 09:57 Dose: 20 mg Clopidogrel Bisulfate (Plavix) 75 mg PO DAILY [facility] Last Admin: 02/04/19 10:01 Dose: 75 mg Diphenhydramine HCl (Benadryl Capsule) 25 mg PO QHS PRN PRN Reason: INSOMNIA Last Admin: 02/03/19 00:36 Dose: 25 mg Enoxaparin Sodium (Lovenox) 40 mg SQ DAILY [facility] Last Admin: 02/04/19 10:01 Dose: 40 mg Escitalopram Oxalate (Lexapro) 10 mg PO DAILY [facility] Last Admin: 02/04/19 10:01 Dose: 10 mg Furosemide (Lasix) 20 mg PO DAILY [facility] Last Admin: 02/04/19 10:00 Dose: 20 mg Levofloxacin/Dextrose (Levaquin 750mg Ivpb) 750 mg in 150 mls @ 125 mls/hr IVPB Q48H [facility] Stop: 02/07/19 18:45 Last Admin: 02/02/19 21:39 Dose: Not Given Insulin Aspart (Novolog Flexpen) 1 unit SQ TIDINS [facility]; Protocol Last Admin: 02/04/19 12:02 Dose: 12 unit Insulin Isophane/Insulin Regular (Humulin 70/30 Kwikpen) 20 unit SQ BID [facility] Last Admin: 02/04/19 10:14 Dose: 20 unit Isosorbide Mononitrate (Imdur) 10 mg PO BID [facility] Last Admin: 02/04/19 09:58 Dose: 10 mg [facility]othy[facility]ine [facility] Last Admin: 02/04/19 06:35 Dose: 100 mcg Metoprolol Succinate (Toprol Xl) 12.5 mg PO DAILY [facility] Last Admin: 02/04/19 10:02 Dose: 12.5 mg Pantoprazole Sodium (Protonix) 40 mg PO DAILYAC [facility] Last Admin: 02/04/19 06:35 Dose: 40 mg Prednisone (Prednisone 20mg) 40 mg PO DAILYWM [facility] Last Admin: 02/04/19 08:26 Dose: 40 mg AMI Plan - Labs Result Diagrams: 02/02/19 15:30 02/03/19 12:19
[2019-02-04] MEDS: LEVOFLOXACIN/D5W 750 MG/150 ML BAG IVPB SCH (18:21)
[2019-02-04] MEDS: DIPHENHYDRAMINE HCL 25 MG CAPSULE PO PRN (22:12)
[2019-02-04] MEDS: ATORVASTATIN 20 MG TABLET PO SCH (22:12)
[2019-02-05] MEDS: PANTOPRAZOLE SODIUM 40 MG TABLET PO SCH (06:52)
[2019-02-05] MEDS: LEVOTHYROXINE SODIUM 100 MCG TABLET PO SCH (06:52)
[2019-02-05 08:09] LABS: GRAN % 78.5 % (47-80); HEMATOCRIT 28.6 % (35.0-47.0); HEMOGLOBIN 8.7 gm/dl (11.6-16.0); LYMPH % 14.8 % (16-45); MEAN CELL VOLUME 94.1 fl (81-97); MEAN CORPUSCULAR HEMOGLOBIN 28.6 pg (27-33); MEAN CORPUSCULAR HGB CONC 30.4 g/dl (32-36); MEAN PLATELET VOLUME 9.7 fl (7.4-10.4); MONO % 6.7 % (0-9); PLATELET COUNT 316 K/uL (130-400); RED BLOOD COUNT 3.04 M/uL (3.80-5.40); RED CELL DISTRIBUTION WIDTH 13.5 % (11.5-14.5); WHITE BLOOD COUNT W/O DIFF 12.9 K/uL (4.2-12.2)
[2019-02-05 08:18] LABS: CREATININE 1.2 mg/dL (0.5-0.9)
[2019-02-05] MEDS: NOVOLOG FLEXPEN (INSULIN ASPART) 100 UNITS/ML SQ SCH ×2 (09:05→12:23)
[2019-02-05] MEDS: HUMULIN 70/30 KWIKPEN 100 UNIT/ML SQ SCH (09:06)
[2019-02-05] MEDS: ASPIRIN 325 MG TABLET PO SCH (09:16)
[2019-02-05] MEDS: BUSPIRONE 5 MG TABLET PO SCH (09:16)
[2019-02-05] MEDS: FUROSEMIDE 20 MG TABLET PO SCH (09:18)
[2019-02-05] MEDS: CLOPIDOGREL 75MG TABLET PO SCH (09:18)
[2019-02-05] MEDS: METOPROLOL SUCC 25 MG TAB.ER PO SCH (09:18)
[2019-02-05] MEDS: PREDNISONE 20 MG TAB PO SCH (09:18)
[2019-02-05] MEDS: ESCITALOPRAM 10 MG TABLET PO SCH (09:19)
[2019-02-05] MEDS: ISOSORBIDE MONONITRATE 20 MG TABLET PO SCH (09:19)
--- NOTE | 2019-02-05 09:29 | Discharge Summary ---
Providers Discharge Summary Date: 02/05/19 Date of admission: 02/02/19 18:40 Expected Date of Discharge: 02/05/19 Attending physician: POLLY VYAS Primary care physician: JUDD GARRIDO D.O. Physical Exam - Vital Signs Vital Signs: Vital Signs - Last 24 Hrs Temp Pulse Pulse Resp BP Pulse Ox 02/05/19 08:04 97.3 F L 52 L 16 123/55 97 02/05/19 04:00 98.2 F 72 22 120/56 97 02/04/19 20:24 98.2 F 72 20 113/47 96 02/04/19 18:00 98.0 F 96 H 20 123/45 96 02/04/19 14:00 97.1 F L 66 18 117/65 97 02/04/19 09:32 80 16 99 - General General Appearance: Alert, Oriented x3, Cooperative, No acute distress Limitations: No limitations - Head Head exam: Normal inspection - Eye Eye exam: Normal appearance, PERRL, EOMI Pupils: Normal accommodation - ENT ENT exam: Normal exam, Mucous membranes moist, Normal external ear exam, Normal orophraynx Ear exam: Normal external inspection. negative: External canal tenderness Nasal Exam: Normal inspection. negative: Discharge, Sinus tenderness Mouth exam: Normal external inspection, Tongue normal Teeth exam: Normal inspection. negative: Dental caries Throat exam: Normal inspection. negative: Tonsillar erythema, Tonsillar exudate - Neck Neck exam: Normal inspection, Full ROM. negative: Tenderness - Respiratory Respiratory exam: Decreased breath sounds. negative: Rales, Respiratory distress, Wheezes - Cardiovascular Cardiovascular Exam: Regular rate, Normal rhythm, Normal heart sounds Peripheral Pulses: 3+: Radial (R), Radial (L), Dorsalis Pedis (R), Dorsalis Pedis (L) - GI/Abdominal GI/Abdominal exam: Soft, Normal bowel sounds. negative: Tenderness - Rectal Rectal exam: Deferred - exam: Deferred - Extremities Extremities exam: Normal inspection, Full ROM, Normal capillary refill. negative: Tenderness - Back Back exam: Reports: Normal inspection, Full ROM. Denies: Muscle spasm, Rash noted, Tenderness - Neurological Neurological exam: Alert, CN II-XII intact, Normal gait, Oriented X3 - Psychiatric Psychiatric exam: Normal affect, Normal mood - Skin Skin exam: Dry, Intact, Normal color, Warm Hospitalization - Hospitalization Admission Diagnosis: acute exacerbation of copd w asthma, pneumonia, outpt failure - Problem List/Discharge Diagnosis (1) Dyspnea Current Visit: Yes Status: Acute Discharge Diagnosis: Dyspnea type: dyspnea on exertion Qualified Code(s): R06.09 - Other forms of dyspnea Base Code: R06.00 - DYSPNEA, UNSPECIFIED Comment: 02/05/19 -pt to D/C today, Cardiology appt 02/06/19 9:45am -levaquin QOD until sunday for original concern of PNA and to complete tx and continued elevated WBC -continue Lasix QD PO -home health intermediate vistis -f/u PCP 1 -1 1/2 weeks 02/04/19 -ECHO completed, EF 60% but showing severe pulm HTN, pt does not have senior commissary agent and no cards available for cosult today -Procalcitonin 0.100, CHF and COPD components rather, less concern for PNA 02/04/19: - 2/2 COPD, CHF? vs Pneuomonia - Maintaining sats > 95 % on RA - Supplmental oxygen as needed. - CXR not showing infiltrate, lung sounds suggestive of fluid overload. Pt non- compliant with Lasix. - Checking Echo and ordered procalcitonin. (2) Diabetes mellitus, type II Current Visit: Yes Status: Acute Base Code: E11.9 - TYPE 2 DIABETES MELLITUS WITHOUT COMPLICATIONS Comment: 02/05/19 -PCP to follow pt glucose, elevated A1c but with age and co-morbidities can be goal of 8 -steroids finishing -continue ADA diet home 02/04/19 -continue insuline, steroid use has caused hyperglycemia, A1c >8, pt will follow with PCP -continue TID AC accuchecks, ADA diet 02/03/19: - Resume insulin 70/30 20 units BID, start insulin sliding scale low dose. - Acuchecks TIDAC, Diabetic diet. - POC glucose: 404, administered 10 units of insulin. (3) CHF (congestive heart failure) Current Visit: No Status: Acute Discharge Diagnosis: Heart failure type: unspecified Heart failure chronicity: acute Qualified Code(s): I50.9 - Heart failure, unspecified Base Code: I50.9 - HEART FAILURE, UNSPECIFIED Comment: 02/05/19 -lung sounds diminished but no noted crackles -leg edema +1 pitting, pulses +3 -continue lasix QD, [facility] home care -pt to f/u cardiology for CHF 02/04/19 -lung sound improved, lower leg edema continues -ECHO EF 60% with severe pulm htn, pt needs card consult/follow up -continue lasix QD 02/03/19: - Exertional dyspnea, crackles of lower lung bases bilaterally, hx of CAD s/p stents. - Pt non-compliance with medications for the past 3 days. - 2D echo ordered. - Resume home medications: Atorvastatin 80mg Qd, Imdur 20mg BID, ASA/Plavix, BB? - Starting Lasix 20mg PO QD, pharmacy to reconcile home medications. (4) COPD (chronic obstructive pulmonary disease) Current Visit: No Status: Acute Discharge Diagnosis: COPD type: COPD with acute exacerbation Qualified Code(s): J44.1 - Chronic obstructive pulmonary disease with (acute) exacerbation Base Code: J44.9 - CHRONIC OBSTRUCTIVE PULMONARY DISEASE, UNSPECIFIED Comment : 02/05/19 -continue duo nebs q6hr PRN, finishing steroids and abx (WBC remained elevated) -f/u PCP 02/04/19 -sats maintaining on RA -duo nebs q6hr, PO steroids -Started Breo inhaler 02/03/19: - Sats >95% on room. 02/03/19: - CXR: acute process noted, no infiltrates/opacities. - WBC 12K. Influenza A/B negative. Ordered procalcitonon. D/C Abx if indicated. - Supplemental oxygen PRN to keep sats > 92%. - On Duonebs Q6H, Albuterol nebs Q4H PRN, D/C Solumderol. - Prednisone 40mg PO QD, Breo inhaler QD to be continued at home. - Patient is exposed to second hand smoke in her home. (5) DVT prophylaxis Current Visit: Yes Status: Acute Base Code: [id number] - Comment: 02/04/19: - Lovenox 40mg subq QD (6) Full code status Current Visit: Yes Status: Acute Base Code: Z78.9 - OTHER SPECIFIED HEALTH STATUS Comment: 02/05/19: - Discussed code status with the patient. - Pt is full code this admission. - Hospitalization Course Disposition: Home Health Service Hospital Course: Mrs. Chin is a 84 y/o female with history of COPD, DM II and CAD s/p stents, complaint of shortness of breath and weakness over the past 1 week. The patient says that she was seen in the ED last week and started on antibiotics for pneumonia and treated for COPD exacerbation which did resolve her symptoms. She says she felt a lot better but then about 1 day ago her symptoms returned. She says that she was not taking her medications as prescribed because she just didn 't feel like it. She says that her appetite hasn't been the best and she feels much weaker. The patient is independent of her ADLs and does not use any oxygen at home. Shes denies, fever, chest pain, headaches, N/V. 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 She cannot recall when her last cardiac echo was and she denies any recent changes to medications. ED course: CXR: No infiltrates/opacities. Labs: WBCs 12K, electrolytes WNL Vitals: BP 127/58,HR78,T97.9, RR20, 95% RA Current Vitals: BP 125/45, HR 79, T 97.7, RR 24, Sats 97% RA PCP: Dr. Judd Garrido Procedures: Imaging and X-Rays 02/02/19 16:08 CXR [CHEST 2 VIEWS] [RAD] Stat Cardiology Procedures 02/03/19 09:20 Echocardiogram 2D - Complete NOW 02/03/19 11:42 Echo W/CF & Cardiac Doppler NOW Abnormal Labs: Abnormal Lab Results 02/02/19 02/02/19 02/02/19 Range/Units 15:30 15:30 15:30 WBC 12.3 H (4.2-12.2) K/uL RBC 3.48 L (3.80-5.40) M/uL Hgb 10.2 L (11.6-16.0) gm/dl Hct 32.1 L (35.0-47.0) % MCHC 31.8 L (32-36) g/dl Lymphocytes % (16-45) % BUN (8-23) mg/dL Creatinine 1.2 H (0.5-0.9) mg/dL POC Glucose (70-110) mg/dL Random Glucose (74-109) mg/dL Hemoglobin A1c (4.0-6.00) % Calcium 8.6 L (8.8-10.2) mg/dL NT-Pro-B Natriuret Pep 2980.00 H (<450) pg/mL 02/03/19 02/03/19 02/03/19 Range/Units 07:27 07:27 12:02 WBC (4.2-12.2) K/uL RBC (3.80-5.40) M/uL Hgb (11.6-16.0) gm/dl Hct (35.0-47.0) % MCHC (32-36) g/dl Lymphocytes % (16-45) % BUN (8-23) mg/dL Creatinine (0.5-0.9) mg/dL POC Glucose 436 H 404 H 526 H* (70-110) mg/dL Random Glucose (74-109) mg/dL Hemoglobin A1c (4.0-6.00) % Calcium (8.8-10.2) mg/dL NT-Pro-B Natriuret Pep (<450) pg/mL 02/03/19 02/03/19 02/03/19 Range/Units 12:19 17:43 21:38 WBC (4.2-12.2) K/uL RBC (3.80-5.40) M/uL Hgb (11.6-16.0) gm/dl Hct (35.0-47.0) % MCHC (32-36) g/dl Lymphocytes % (16-45) % BUN (8-23) mg/dL Creatinine (0.5-0.9) mg/dL POC Glucose 284 H 361 H (70-110) mg/dL Random Glucose 481 H* (74-109) mg/dL Hemoglobin A1c (4.0-6.00) % Calcium (8.8-10.2) mg/dL NT-Pro-B Natriuret Pep (<450) pg/mL 02/04/19 02/04/19 02/04/19 Range/Units 10:26 10:28 10:45 WBC (4.2-12.2) K/uL RBC (3.80-5.40) M/uL Hgb (11.6-16.0) gm/dl Hct (35.0-47.0) % MCHC (32-36) g/dl Lymphocytes % (16-45) % BUN (8-23) mg/dL Creatinine (0.5-0.9) mg/dL POC Glucose 127 H 272 H (70-110) mg/dL Random Glucose (74-109) mg/dL Hemoglobin A1c 8.10 H (4.0-6.00) % Calcium (8.8-10.2) mg/dL NT-Pro-B Natriuret Pep (<450) pg/mL 02/04/19 02/04/19 02/04/19 Range/Units 12:15 17:00 21:45 WBC (4.2-12.2) K/uL RBC (3.80-5.40) M/uL Hgb (11.6-16.0) gm/dl Hct (35.0-47.0) % MCHC (32-36) g/dl Lymphocytes % (16-45) % BUN (8-23) mg/dL Creatinine (0.5-0.9) mg/dL POC Glucose 371 H 356 H 393 H (70-110) mg/dL Random Glucose (74-109) mg/dL Hemoglobin A1c (4.0-6.00) % Calcium (8.8-10.2) mg/dL NT-Pro-B Natriuret Pep (<450) pg/mL 02/05/19 02/05/19 02/05/19 Range/Units 07:11 08:00 08:00 WBC 12.9 H (4.2-12.2) K/uL RBC 3.04 L (3.80-5.40) M/uL Hgb 8.7 L (11.6-16.0) gm/dl Hct 28.6 L (35.0-47.0) % MCHC 30.4 L (32-36) g/dl Lymphocytes % 14.8 L (16-45) % BUN 34 H (8-23) mg/dL Creatinine 1.2 H (0.5-0.9) mg/dL POC Glucose 196 H (70-110) mg/dL Random Glucose 170 H (74-109) mg/dL Hemoglobin A1c (4.0-6.00) % Calcium (8.8-10.2) mg/dL NT-Pro-B Natriuret Pep (<450) pg/mL Condition at Discharge: (2) Stable Discharge Medications - Discharge Medications Prescriptions: Fluticasone/Vilanterol 100/25 [Breo Ellipta 100-25 Mcg INH] 1 puff INH DAILY #1 inhaler Furosemide [Lasix] 20 mg PO DAILY 14 Days #14 tablet Prednisone [Prednisone 20Mg] 40 mg PO DAILYWM 2 Days #4 tab Home Medications: Ambulatory Orders Albuterol Sulfate 0.083% [Neb] [Albuterol Sulfate] 3 ml NEB .EVERY 4-6 HOURS PRN #20 ml 01/26/19 [Last Taken 1 Day Ago ~02/01/19] Aspirin 325 mg PO DAILY 01/26/19 [Last Taken 1 Day Ago ~02/01/19] Atorvastatin Calcium 80 mg PO QHS 01/26/19 [Last Taken 1 Day Ago ~02/01/19] Buspirone HCl [Buspar] 20 mg PO BID 01/26/19 [Last Taken 1 Day Ago ~02/01/19] Clopidogrel Bisulfate [Plavix] 75 mg PO DAILY 01/26/19 [Last Taken 1 Day Ago ~] Escitalopram Oxalate [Lexapro] 10 mg PO DAILY 01/26/19 [Last Taken 1 Day Ago ~] Insulin NPH Hum/Reg Insulin Hm [Novolin 70-30 Flexpen] 20 units SQ BID 01/26/19 [Last Taken 1 Day Ago ~02/01/19] Isosorbide Mononitrate [Imdur] 10 mg PO BID 01/26/19 [Last Taken 1 Day Ago ~04/16] Levothyroxine Sodium [Synthroid] 100 mcg PO DAILYAC 01/26/19 [Last Taken 1 Day Ago ~02/01/19] Cyanocobalamin (Vitamin B-12) [Vitamin B-12] 1,000 mcg PO DAILY 02/03/19 [Last Taken Unknown] Esomeprazole Magnesium [Nexium] 20 mg PO DAILYAC 02/03/19 [Last Taken Unknown] Metoprolol Succinate 12.5 mg PO DAILY 02/03/19 [Last Taken Unknown] Thiamine HCl [B-1] 100 mg PO DAILY 02/03/19 [Last Taken Unknown] Acetaminophen [Tylenol 500Mg Tab] 1,000 mg PO Q6H PRN tablet 02/05/19 [Last Taken Unknown] Albuterol Sulfate 0.083% [Neb] [Albuterol Sulfate] 2.5 mg INH RESP.Q4H PRN nebulization solution 02/05/19 [Last Taken Unknown] Buspirone HCl [Buspar] 20 mg PO BID tablet 02/05/19 [Last Taken Unknown] Fluticasone/Vilanterol 100/25 [Breo Ellipta 100-25 Mcg INH] 1 puff INH DAILY #1 inhaler 02/05/19 [Last Taken Unknown] Furosemide [Lasix] 20 mg PO DAILY 14 Days #14 tablet 02/05/19 [Last Taken Unknown] Ipratropium/Albuterol [Duoneb] 3 ml INH RESP.Q6H PRN ampul.neb 02/05/19 [Last Taken Unknown] Isosorbide Mononitrate [Imdur] 10 mg PO BID tablet 02/05/19 [Last Taken Unknown ] Levofloxacin [Levaquin] 750 mg PO Q48H 4 Days #2 tablet 02/05/19 [Last Taken Unknown] Metoprolol Succinate [Toprol Xl] 12.5 mg PO DAILY tab.er.24h 02/05/19 [Last Taken Unknown] Prednisone [Prednisone 20Mg] 40 mg PO DAILYWM 2 Days #4 tab 02/05/19 [Last Taken Unknown] Discharge Plan - Discharge Instructions Activity at Discharge: Increase Activity as Tolerated Diet at Discharge: Diabetic Diet Instructions: Pulmonary Arterial Hypertension (DC) Additional Instructions: Appointment with [employer] Dr. Ortega at [facility], 02/06 at 9:45AM. [phone]. Please take your antibiotic Levaquin 750mg on 02/06/19 and 02/08/19. Your kidney function does not allow you to take this every day so you can only take it every other day. Continue with 2 more days of steroids Follow up with your PCP in 1- 1 1/2 weeks, you blood sugars have been elevated here but that is probably due to the steroid use but you still need to have this monitored. Home health, intermediate should be coming to visit. You HAVE TO BE CAREFUL to take your medications every day. you missed 3 days of your lasix and you became full of fluid. This is very important for you to remember. Go to ER for chest pain, shortness of breath, difficulty breathing, or if your legs swell up again. Quality Measures - Quality Measures Quality Measures: Advance Directives, Documentation of Current Medications in Medical Record, Elder Maltreatment Screen and Follow-Up Plan, Heart Failure, Screening for High Blood Pressure and F/U Documented - Current Medications Quality Measure: Measure #130: Documentation of Current Medications Documentation of Current Medications: <Current Medications Documented/Reviewed> [G8409] - Blood Pressure Screening Quality Measure: Screening for High Blood Pressure and Follow-Up Documented Does Patient Have Any of the Following: Active Dx of HTN Blood Pressure Classification: Pre-Hypertensive BP Reading Systolic Measurement: 127 Diastolic Measurement: 58 Screening for High Blood Pressure: Patient Exclusion, Hx of HTN [G9744] - Heart Failure (ANTWON/ARB Therapy) Quality Measure: Heart Failure Left Ventricular Systolic Function: Unknown (EF 60-65% but pulm HTN) ANTWON Inhibitor or ARB Therapy for LVSD: Not Eligible - Heart Failure (Beta-salome Therapy) Quality Measure: Heart Failure Left Ventricular Systolic Function: Unknown Beta-Salome Therapy for LVEF < 40%: <Beta-Salome Therapy Prescribed> [I9350] - Advance Directives Quality Measure: Measure #47: Care Plan Advance Directives Established: Yes Advance Directives Information Provided To Patient: Declined Advance Directives on File: No Living Will: Yes Power of Supervisor [employer]: Yes Power of Supervisor [employer] Name: RENATO JUAREZ Advance Care Planning: <Care Plan/Decision Maker Documented; Discussed & Documented> [4483F] - Elder Abuse Suspicion Index Screening: Elder Abuse Suspicion Index Screening Rely on people for bathing, dressing, shopping, banking, etc: No Prevented from getting food, clothes, medication, etc: No Made to feel shamed or threatened by someone: No Forced to sign papers or use money against will: No Feel afraid, touched in ways not wanted or hurt physically: No Poor eye contact, withdrawn, malnourished, cuts or bruises: No Screening Result: Negative result EASI Reference Information: Matty READ, Isabelle C, Dagmar D, Natalie Woodward.Development and validation of a tool to assist physicians identification of elder abuse: The Elder Abuse Suspicion Index (EASI ). Journal of Elder Abuse and Neglect, 2008; 20 (3): 276-300. - Elder Maltreatment Screen Quality Measures: Elder Maltreatment Screen and Follow-Up Plan Elder Maltreatment Screen: <Negative, No Follow-Up Plan Required> [Y0941]
[2019-02-05] MEDS: ENOXAPARIN 40 MG/0.4 ML SYR SQ SCH (09:37)
[2019-02-05] MEDS: BREO (FLUTICASONE/VILANTEROL) 100MCG/25MCG INHALER INH SCH (09:38)
== END 2019-02-05 13:00 | disposition home health service (06) | DRG 190 ==
LOC: ER 15:08 → MEDSURG 18:40
PROVIDERS: ADMIT Internal Medicine; ATTEND Internal Medicine
DX: J44.1 Chronic obstructive pulmonary disease with (acute) exacerbation (principal); J18.1 Lobar pneumonia, unspecified organism; Z95.811 Presence of heart assist device; Z16.30 Resistance to unspecified antimicrobial drugs; I50.9 Heart failure, unspecified; F41.8 Other specified anxiety disorders; E11.9 Type 2 diabetes mellitus without complications; Z79.4 Long term (current) use of insulin; E03.9 Hypothyroidism, unspecified; I25.2 Old myocardial infarction; Z95.5 Presence of coronary angioplasty implant and graft
CPT/HCPCS: 85025; 80048; 87880; 87400; 83880; 71046; 94640; J1956; 36416; 82947; 82948; 83036; 84145; 90732; 93306; 94760; 94761; 96365; 96374; 99223; 99233; 99239; 99285; J1650; J2930; J7030; J7512; J7613